=== PATIENT | female | born 1960 | race Caucasian/White ===

== ENCOUNTER 2018-08-11 11:50 | Outpatient (CLI) | payer BC ==
[~2018-08-11] VITALS: Ht 162.6 cm; Wt 56.9 kg
[2018-08-11 12:08] VITALS: BP 125/76
[2018-08-11] MEDS ORDERED: CA C1TAB75 PO (12:34)
[2018-08-11] MEDS ORDERED: PANT40TA3 PO (12:34)
[2018-08-11] MEDS ORDERED: ASPI-586 PO (12:34)
[2018-08-11] MEDS ORDERED: TRAM1TAB7 PO (12:34)
[2018-08-11] MEDS ORDERED: SIMV20TA3 PO (12:34)
[2018-08-11] MEDS ORDERED: CETI10CA PO (12:34)
[2018-08-11] MEDS ORDERED: LISI10TA2 PO (12:34)
[2018-08-11] MEDS ORDERED: PROP40TA5 PO (12:34)
[2018-08-11] MEDS ORDERED: CYCL10TA9 PO (12:34)
[2018-08-11] MEDS ORDERED: DICL1TAB49 PO (12:34)
== END 2018-08-11 12:40 | disposition home or self-care (01) ==
LOC: PREOP 11:50
PROVIDERS: ATTEND Podiatrist Foot & Ankle Surgery
DX: Z01.818 Encounter for other preprocedural examination (principal)
CPT/HCPCS: 87081

== ENCOUNTER 2018-08-15 06:00 | Day surgery (SDC) | payer BC ==
[2018-08-14 10:45] VITALS: BP 123/71
[~2018-08-15] VITALS: Ht 162.6 cm; Wt 56.9 kg
[~2018-08-15 06:00] MED LIST: ASPI-586 PO; CA C1TAB75 PO; CETI10CA PO; CYCL10TA9 PO; DICL1TAB49 PO; LISI10TA2 PO; PANT40TA3 PO; PROP40TA5 PO; SIMV20TA3 PO; TRAM1TAB7 PO
[2018-08-15 06:25] VITALS: BP 138/81
[2018-08-15] MEDS ORDERED: ceFAZolin INJECTION 1,000 MG in NS (IVPB) 50 ML IV ONE (06:45)
[2018-08-15] MEDS: LACTATED RINGERS 1,000 ML IV PRN ×2 (06:53→08:30)
[2018-08-15] MEDS ORDERED: DEXAMETHASONE 10 MG/ML (DECADRON) 1 ML VIAL ONE ×2 (07:05→09:08)
[2018-08-15] MEDS ORDERED: LIDOCAINE 1% INJ 20 ML 20 ML VIAL ONE (07:05)
[2018-08-15] MEDS ORDERED: BUPIVACAINE 0.5% 30 ML (SENSORCAINE) VIAL ONE ×2 (07:05→07:22)
[2018-08-15] MEDS ORDERED: FAMOTIDINE 20MG/2ML IV (PEPCID) IV ONE (07:15)
[2018-08-15] MEDS ORDERED: LIDOCAINE PF 2% 5 ML (XYLOCAINE) VIAL ONE (07:17)
[2018-08-15] MEDS ORDERED: SEVOFLURANE (ULTANE) 15 ML INHAL SOLN ONE ×10 (07:17→09:44)
[2018-08-15] MEDS ORDERED: proPOfol 200 MG/20 ML (DIPRIVAN) VIAL IV ONE ×2 (07:17→09:07)
[2018-08-15] MEDS ORDERED: ONDANSETRON 4 MG/2 ML (SDV) Z0FRAN ONE (07:17)
[2018-08-15] MEDS ORDERED: fentaNYL INJECTION 100 MCG/2 ML AMP ONE (07:17)
[2018-08-15] MEDS ORDERED: MIDAZOLAM 2 MG/2 ML (VERSED) VIAL ONE (07:17)
[2018-08-15] MEDS ORDERED: FAMOTIDINE 20MG/2ML IV (PEPCID) ONE (07:20)
--- NOTE | 2018-08-15 07:34 | Progress Note-Pre Operative ---
Pre-Operative Progress Note H&P Reviewed The H&P was reviewed, patient examined and no changes noted. Date Seen by Provider: Aug 15, 2018 Time Seen by Provider: 07:34 Date H&P Reviewed: Aug 15, 2018 Time H&P Reviewed: 07:34 Pre-Operative Diagnosis: Hammertoes 2,3,4,5, Hypertrophic 2nd metatarsal, right REAL JANE DPM Aug 15, 2018 07:34
[2018-08-15] MEDS ORDERED: LACTATED RINGERS 1,000 ML IV SCH (09:56)
--- NOTE | 2018-08-15 09:56 | Progress Note-Post Operative ---
Post-Operative Progess Note Surgeon (s)/Furnace Charging Machine Operator (s) Surgeon REAL JANE DPM Furnace Charging Machine Operator: none Pre-Operative Diagnosis Hammertoes 2,3,4,5, Hypertrophic 2nd metatarsal, right Post-Operative Diagnosis same Procedure & Operative Findings Date of Procedure 08/15/18 Procedure Performed/Findings Reduction of hammertoes 2, 3, 4, 5, 2nd metatarsal osteotomy, all right foot Anesthesia Type General Estimated Blood Loss Estimated blood loss (mL): Minimal Specimens/Packing Specimens Removed none REAL JANE DPM Aug 15, 2018 09:56
[2018-08-15] MEDS ORDERED: ACHD5005 PO (09:59)
[2018-08-15] MEDS ORDERED: CEPH500C PO (09:59)
[2018-08-15] MEDS ORDERED: HYDROcodone/APAP 5 MG/325 MG (LORTAB) TAB PO PRN (10:00)
[2018-08-15] MEDS ORDERED: morphine INJ 10 MG/ML 1ML (SYR OR VIAL) IVP ONE (10:15)
[2018-08-15] MEDS ORDERED: ONDANSETRON 4 MG/2 ML (SDV) Z0FRAN IVP PRN (10:15)
[2018-08-15 11:15] VITALS: BP 127/74
--- NOTE | 2018-08-15 11:31 | Diagnostic Imaging Report ---
EXAMINATION: Right foot at 10:09 a.m. INDICATION: Postop. FINDINGS: There are no prior studies available for comparison. AP and lateral views were obtained. There are orthopedic fixation wires extending longitudinally through the phalanges of the second, third, fourth, and fifth digits. There is also an orthopedic fixation screw extending obliquely through the head of the second metatarsal. There does appear to have been a partial osteotomy of the head of the second metatarsal. In addition, the middle phalanx of the fifth digit is not identified and may be surgically absent. The heads of the proximal phalanges of the other digits also appear to have been surgically resected. There is no fracture or acute bony abnormality appreciated. There is mild deformity of the neck of the third metatarsals due to prior trauma. 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 There is some gas in the soft tissues overlying the lateral aspect of the forefoot. There is no radiopaque foreign body identified in this area. The soft tissues are otherwise unremarkable. IMPRESSION: There are postsurgical changes involving the forefoot as described above. There is no acute abnormality identified. Dictated by: Dictated on workstation # [id number]
[2018-08-15 11:45] VITALS: BP 131/85
--- NOTE | 2018-08-15 13:33 | Anesthesia-General Post-Op ---
General Patient Condition Mental Status/LOC: Same as Preop Cardiovascular: Satisfactory Nausea/Vomiting: Absent Respiratory: Satisfactory Pain: Controlled Complications: Absent Post Op Complications Complications None Follow Up Care/Instructions Patient Instructions None needed. Anesthesia/Patient Condition Patient Condition Patient is doing well, no complaints, stable vital signs, no apparent adverse anesthesia problems. No complications reported per nursing. ANÍBAL ROCA CRNA Aug 15, 2018 13:33
--- NOTE | 2018-08-15 13:35 | Physical Therapy Ortho Eval ---
PT Orthopedic Evaluation Type of Surgery right foot surgery Prior Level of Function Current Living Status: Spouse Locomotion (Upon Admit): Independent Established Durable Medical Eq: Front Wheeled Walker Subjective Subjective Patient agrees to PT. Entry Into Home: Stairs Without Railing Steps Into Home: 2 Steps Inside Home: 2 Steps Accessories: No Railing Other Obstacles: spouse reports he is able to assist patient with this task Motor Control Motor Control: Motor Control WNL ROM ROM: WFL, except focal deficit Strength Strength: WFL Transfer Transfers (B, C, W/C) (FIM): 6 Gait Gait Assistive Device: FWW Right Lower Extremity: Right Weight Bearing Status RLE: Partial Weight Bearing (instructed as NWB right foot with surgical shoe in place) Left Lower Extremity: Left Weight Bearing Status LLE: Full Weight Bearing Gait (FIM): 6 Distance: 150' x 2 Gait Level of Assist: 5 Summary/Comments patient is able to perform NWB right foot without difficulty Treatment Rendered Treatment: Gait Train, Step Train (verbal instruction) Assessment/Goals Goal Time Frame: 1 Visit Safe Ambulation: Yes Plan Treatment Plan: Discharge, Education, Functional Activity Tolerated, Functional Strength, Gait, Safety, Transfers Treatment Duration: evaluation Visits Per Week: 1 PT/Family Agrees to Plan: Yes Time Time In: 1140 Time Out: 1155 Total Billed Treatment Time: 15 Billed Treatment Time 1 visit EVLow 15 min TAL Ashley PT Aug 15, 2018 13:35
--- NOTE | 2018-08-15 20:03 | OPERATIVE REPORT ---
DATE OF SERVICE: 08/15/2018 SURGEON: Leora Moreau DPM PREOPERATIVE DIAGNOSES: 1. Hammer digit syndrome, right second, third, fourth and fifth toes, right foot. 2. Hypertrophic second metatarsal head, right foot. POSTOPERATIVE DIAGNOSES: 1. Hammer digit syndrome, right second, third, fourth and fifth toes, right foot. 2. Hypertrophic second metatarsal head, right foot. PROCEDURES: 1. Reduction of hammertoe, right second, third, fourth and fifth digits. 2. Second metatarsal osteotomy, right foot. WOUND CLASS: Clean. ANESTHESIA: General. HEMOSTASIS: Pneumatic thigh tourniquet at 250 mmHg. INDICATIONS: This 58-year-old female presents complaining of the painful right foot. Conservative therapy has met with unsatisfactory result and the patient is agreeable to surgical intervention after risks and complications were discussed at length. No guarantees were extended to the patient and she is willing to proceed. DESCRIPTION OF PROCEDURE: The patient was brought back to the operating table, placed in secure supine position. A general anesthetic was then induced. Appropriate timeout was performed. Pneumatic thigh tourniquet was placed on the right lower extremity over several layers of padding. The right foot was then prepped and draped in normal sterile manner. Local anesthetic was utilized with 0.5% Marcaine in a local infused into the surgical site, which was the digit utilizing 0.5% Marcaine and 10 mL was utilized in total. Attention was then directed to the dorsal aspect of the right second metatarsophalangeal joint where a 4 cm longitudinal linear incision was created from the surgical neck of the second metatarsal out to the distal interphalangeal joint area. The incision was deepened in the same plane with great care to identify and retract all vital neurovascular structures. All the necessary blood vessels were cauterized as encountered. The extensor tendon was lengthened utilizing a Z slide technique overlying the proximal phalanx. The extensor tendon was reflected proximally and the extensor julian released overlying the metatarsophalangeal joint. This allowed access to the dorsal aspect of the second metatarsophalangeal joint where a dorsal capsulorrhaphy was performed as well as release of the medial lateral collateral ligaments. This allowed the contracted proximal phalanx to come down into more rectus alignment. The same technique was performed on the third, fourth and fifth digit of the right foot. The incision to the third, fourth and fifth digits were at the metatarsophalangeal joint extending to the distal interphalangeal joint. The same dissection was carried out to release the extensor tendon and same capsulorrhaphy to the metatarsophalangeal joints allowing the metatarsophalangeal joint to come into more rectus alignment. Next, the head of the proximal phalanx was fashioned into a peg utilizing a power sagittal saw and power bur to the second, third and fourth digits after which a chrissy was utilized to create a hole in the base of the middle phalanx. The wounds were flushed with copious amounts of normal saline. Utilizing a 0.054 K wire, the second, third and fourth digits were held in rectus alignment. The K-wire extended out the end of the toe were cut and a protective ball placed over the end of the wires. Excellent reduction of the hammertoe problem was identified at this time to the second, third and fourth digits. Arthroplasty was performed to the right fifth toe where the hypertrophic head of the proximal phalanx was resected. The extensor tendon was then repaired with 4-0 Vicryl and a 0.45 K-wire was driven through the right fifth toe and the excess wire was cut and a protective ball placed over the end of the wire. Attention was then directed to the right second metatarsal where an oblique osteotomy was performed from dorsal to plantar from lateral distal to proximal medial. The capital fragment was shifted in a medial and proximal orientation and fixated in its corrected position utilizing a 2.0 snap-off screw of 14 mm of length. Excellent bony apposition and fixation was appreciated at this time. The wounds were flushed with copious amounts of normal saline and closure was performed in layers. The extensor tendons were repaired utilizing 3-0 Vicryl to the second, third and fourth digits and a 4-0 Vicryl was utilized on the right fifth digit extensor tendon. Subcutaneous tissue was repaired with 4-0 Vicryl, skin closure with 4-0 Prolene in simple interrupted type stitch. Postoperative injection consisted of 12 mL of 0.5% Marcaine again injected into the local infused into the surgical sites. A postoperative dressing consisted of Betadine soaked Adaptic, sterile 4 x 4, sterile Kerlix all secured with Coban wrap. The patient tolerated the anesthesia and procedure well and was transported from the operating room to the recovery area with vital signs stable and vascular status intact to all digits of the right foot. Postoperative instructions were given to the patient to be partial weightbearing with heel contact only on the right lower extremity. She is to receive a prescription for Keflex and Vicodin. She is to follow up in the office in 10 days' period of time or sooner if necessary. Job ID: [id number] DocumentID: [id number] Dictated Date: 08/15/2018 10:06:39 Rubber Goods Assembler Date: 08/15/2018 20:02:50 Dictated By: BASILIA HEADLEY
== END 2018-08-15 12:00 | disposition home or self-care (01) ==
LOC: SDC 06:00
PROVIDERS: ATTEND Podiatrist Foot & Ankle Surgery
DX: M20.41 Other hammer toe(s) (acquired), right foot (principal); M89.371 Hypertrophy of bone, right ankle and foot; I10 Essential (primary) hypertension; M17.11 Unilateral primary osteoarthritis, right knee; D50.9 Iron deficiency anemia, unspecified; E78.00 Pure hypercholesterolemia, unspecified; I65.29 Occlusion and stenosis of unspecified carotid artery; Z79.82 Long term (current) use of aspirin; Z79.899 Other long term (current) drug therapy
CPT/HCPCS: 73620